=== PATIENT | male | born 1935 | race Caucasian/White ===

== ENCOUNTER 2018-01-31 07:40 | Day surgery (SDC) | payer MEDICARE, BC ==
--- NOTE | 2018-01-25 20:15 | HP ---
HISTORY AND PHYSICAL: DATE OF PLANNED ADMISSION AND SURGERY: 01/31/18 HISTORY OF PRESENT ILLNESS: Mr. Nuñez is an 82-year-old white male, who is admitted with a bladder calculus for cystoscopy and cystolitholapaxy. Mr. Nuñez's history goes back to 1994 when he was diagnosed with carcinoma of the prostate and underwent a radical retropubic prostatectomy. Pathology showed positive bladder neck margin, and he received a course of external beam radiation therapy. He has done well regarding his prostate cancer and has had no recurrent disease and his PSA has remained 0.0. 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 This has required incision of the bladder neck in 2010 which made his urinary incontinence worse. . He has been managed with intermittent self-dilation with a 14-Bulgarian catheter. He had continued to be partially incontinent of urine, but has been managing well with the use of pads. He presented to the office because of feeling of incomplete bladder emptying and being unable to perform the self-catheterization and dilation. Office cystoscopy which showed a 1.5 cm calculus at the bladder neck obstructing his bladder outlet. No other abnormalities were noted. A Wallis catheter was placed draining his bladder. He is now admitted for treatment of the stone. PAST MEDICAL HISTORY AND SYSTEM REVIEW: He has history of chronic diarrhea that had resulted in significant loss of weight. Full GI and general work-up for the weight loss and diarrhea was negative. . He has has been maintained on Imodium, with significantly improvement and recovery of some of his weight loss.. He denies any cardiac or pulmunory diseases or symptoms. MEDICATIONS: His only medication is Imodium. ALLERGIES: He reports having intolerance or allergy to TYLENOL, SULFA, and FLU SHOTS. PHYSICAL EXAMINATION GENERAL: Pleasant white male, who is slim and looks his age. VITAL SIGNS: Blood pressure 140/80, pulse of 90. LUNGS: Clear. HEART: Regular and rhythmic. No murmurs. ABDOMEN: Soft. No masses, no tenderness, and no CVA tenderness. EXTERNAL GENITALIA: Normal. EXTREMITIES: Show no edema. IMPRESSION: 1. History of prostate carcinoma, status post radical prostatectomy and radiation therapy with resultant bladder neck contracture and urinary incontinence. 2. Intermittent self-catheterization and dilation. 3. Recent episode of partial urinary retention caused by a 1.5 cm calculus at the bladder neck. PLAN: Plan is for cystoscopy and cystolitholapaxy. I discussed the above plans with the patient. All his questions were answered. [id number]/[facility] #: [id number] GABRIELLA
[~2018-01-31 07:40] MED LIST: Buffered Lidocaine 0.9% SYRIN* 5 ML/SYR SYRINGE INTRADERM ONE; Dexamethasone IV* 4 MG/ML 1 ML (4 MG) IV SLOW PU ONE; Famotidine IV* 10 MG/ML 2 ML (20 mg) IV ONE
[2018-01-31] MEDS ORDERED: cefTRIAXone(*) 1 GM ADVAN/BAG ONE (07:59)
[2018-01-31] MEDS ORDERED: Buffered Lidocaine 0.9% SYRIN* 5 ML/SYR SYRINGE ONE (07:59)
[2018-01-31] MEDS ORDERED: Famotidine IV* 10 MG/ML 2 ML (20 mg) ONE (07:59)
[2018-01-31] MEDS ORDERED: Dexamethasone IV* 4 MG/ML 1 ML (4 MG) ONE (07:59)
[2018-01-31] MEDS ORDERED: Ketorolac INJ* 30 MG/ML 1 ML VIAL IV PRN (09:08)
[2018-01-31] MEDS ORDERED: Naloxone* 0.4 MG/ML 1 ML VIAL IV PRN (09:08)
[2018-01-31] MEDS ORDERED: Ondansetron INJ* 2 MG/ML VIAL IV PRN (09:08)
[2018-01-31] MEDS ORDERED: fentaNYL* 50 MCG/ML 2 ML VIAL (100 MCG VIAL) IV PRN (09:08)
[2018-01-31] MEDS ORDERED: fentaNYL* 50 MCG/ML 2 ML VIAL (100 MCG VIAL) ONE (09:31)
[2018-01-31] MEDS ORDERED: Chloroprocaine 2%* 20 ML VIAL ONE (09:31)
[2018-01-31] MEDS ORDERED: Midazolam* 1 MG/ML 2 ML VIAL (2 MG) ONE (09:31)
[2018-01-31] MEDS ORDERED: Labetalol IV* 5 MG/ML 20 ML VIAL ONE (11:42)
[2018-01-31 12:19] VITALS: BP 167/88
--- NOTE | 2018-02-01 04:01 | OP ---
CC: Dr. Mak * DATE OF OPERATION: 01/31/18 - [facility] DATE OF : 33 SURGEON: Harinder Verma MD. ANESTHESIOLOGIST: Billy Padron MD ANESTHESIA: Spinal. PRE-OP DIAGNOSES: 1. Bladder calculus. 2. Urinary retention due to above. POST-OP DIAGNOSES: 1. Bladder calculus. 2. Urinary retention due to above. OPERATIVE PROCEDURE: 1. Cystoscopy. 2. Cystolithopexy. INDICATION FOR PROCEDURE: Mr. Nuñez is an 82-year-old white male who had undergone a radical prostatectomy followed by radiation therapy because of prostate carcinoma with positive bladder neck margin. He developed bladder contracture, urinary incontinence, and has been managed with intermittent catheterizations. Last week he was unable to void and he could not catheterize himself and was noted on office cystoscopy to have a 1.5 cm calculus at the bladder neck causing the retention. He had a Wallis catheter placed. He is now admitted for the above procedure. PATHOLOGY AT CYSTOSCOPY: The penile and bulbar urethrae looked normal. There was scarring involving the membranous urethra. The bladder neck was partially narrow, but there was no contracture. There were radiation changes noted in the base of the bladder and in the posterior bladder neck. A 1.5 cm calculus was noted in the base of the bladder. No other calculi seen. The rest of the bladder was normal showing no diverticuli and no suspicious bladder lesions. DESCRIPTION OF PROCEDURE: After successful spinal anesthesia, the patient was placed in the lithotomy position and was prepped and draped for a cystoscopy. A 20- Russian cystoscope was then introduced inside the bladder under direct vision. The bladder was entered, inspected and the above findings were noted. Using a 1,000 micron laser fiber, the stone was broken into multiple fragments. Care was taken not to cause any injury to the bladder wall. The bladder was then irrigated and all the stone fragments were evacuated. Final inspection showed no residual stone fragments, no evidence of any bladder wall injury. A size 16-Russian Wallis catheter was then passed inside the bladder and the balloon inflated with 10 cc of water. The patient tolerated the procedure well and left the operating room in good condition. [id number]/[facility] #: [id number] [facility]
== END 2018-01-31 12:45 | disposition home or self-care (01) ==
LOC: OR 07:40
PROVIDERS: ATTEND Urology
DX: N21.0 Calculus in bladder (principal); R33.8 Other retention of urine; Z85.46 Personal history of malignant neoplasm of prostate; K52.9 Noninfective gastroenteritis and colitis, unspecified; J45.909 Unspecified asthma, uncomplicated
CPT/HCPCS: 82365; 88300; J0696; J1100; J2250; J2400; J3010